=== PATIENT | male | born 1945 | race Two or more races ===

== ENCOUNTER 2024-11-14 13:50 | Inpatient (IN) | payer OTHER ==
[~2024-11-14] VITALS: Ht 180.3 cm; Wt 71.0 kg
--- NOTE | 2024-11-14 13:58 | ED.PDOC ---
GI ASSESSMENT HPI Comments This is a 79 year old male JARED presenting to the ED with chief complaint of abdominal pain. Patient reports that he has been experiencing abdominal cramping with associated nausea, vomiting, diarrhea, chills and fever since waking up this morning at 8am. Patient relays that his has also been recently sick, but is getting better now. Patient states he had lab work performed recently and his results show elevated liver enzymes. Patient denies any dizziness, chest pain, SOB, dysuria, hematuria, hematemesis, or melena. Time Seen by MD: 13:54 Reviewed Notes: Nurses Notes, Neurophysiologist Notes, Medications, Allergies Allergies: Coded Allergies: NO KNOWN ALLERGIES (Unverified , 11/14/24) Information Source: Patient, Emergency Med Personnel Mode of Arrival: EMS Timing: Hours Duration: Since onset Prehospital treatment: None Quality: Cramping Vomitus: Watery Stool: Loose Severity: Moderate Recent: None Recent Hx of: None Pain Location: Epigastric Modifying Factors: Nothing Associated sign and symptoms: Nausea, Vomiting, Diarrhea, Abdominal Pain Past Medical History PAST MEDICAL HISTORY: GERD Past Medical History (Other): Chronic back pain Surgical History: Cholecystectomy, Hernia Repair Surgical History (Other): Back surgery, Bilateral eye lens surgery Family History Family History: Reviewed,noncontributory to illness Social History Smoker: Non-Smoker Alcohol: Occasionally Drugs: Denies Drug Use Lives In: Home Constitutional: reports: chills, fever; denies: diaphoresis, fatigue, malaise, sweats, weakness, others EENTM: denies: blurred vision, double vision, ear bleeding, ear discharge, ear drainage, ear pain, ear ringing, eye pain, eye redness, hearing loss, mouth pa in, mouth swelling, nasal discharge, nose bleeding, nose congestion, nose pain, photophobia, tearing, throat pain, throat swelling, voice changes, others Respiratory: denies: cough, hemoptysis, orthopnea, SOB at rest, shortness of breath, SOB with excertion, stridor, wheezing, others Cardiovascular: denies: chest pain, dizzy spells, diaphoresis, Dyspnea on exertion, edema, irregular heart beat, left arm pain, lightheadedness, palpitations, PND, syncope, others Gastrointestinal: reports: abdominal pain, diarrhea, nausea, vomiting; denies: abdomen distended, blood streaked bowels, constipated, dysphagia, difficulty swallowing, hematemesis, melena, poor appetite, poor fluid intake, rectal bleeding, rectal pain, others Genitourinary: denies: burning, dysuria, flank pain, frequency, hematuria, incontinence, penile discharge, penile sore, pain, testicle pain, testicle swelling, urgency, others Neurological: denies: dizziness, fainting, headache, left sided numbness, left sided weakness, numbness, paresthesia, pre-existing deficit, right sided numbness, right sided weakness, seizure, speech problems, tingling, tremors, weakness, others Musculoskeletal: denies: back pain, gout, joint pain, joint swelling, muscle pain, muscle stiffness, neck pain, others Integumetry: denies: bruises, change in color, change in hair/nails, dryness, laceration, lesions, lumps, rash, wounds, others Allergic/Immunocompromised: denies: Difficulty Healing, Frequent Infections, Hives, Itching, others Hematologic/Lymphatic: denies: anemia, blood clots, easy bleeding, easy bruising, swollen glands, others Endocrine: denies: excessive hunger, excessive sweating, excessive thirst, excessive urination, flushing, intolerance to cold, intolerance to heat, unexplained weight gain, unexplained weight loss, others Psychiatric: denies: anxiety, bipolar disorder, depression, hopeless, panic disorder, schizophrenia, sleepless, suicidal, others All Other Systems: Reviewed and Negative Physical Exam General Appearance: Moderate Distress HEENT: Normal ENT Inspection, Pharynx Normal, TMs Normal Neck: Full Range of Motion, Non-Tender, Normal, Normal Inspection Respiratory: Chest Non-Tender, Lungs Clear, No Accessory Muscle Use, No Respiratory Distress, Normal Breath Sounds Cardiovascular: No Edema, No JVD, No Murmur, No Gallop, Normal Peripheral Pulses, Regular Rate/Rhythm Breast Exam: Deferred Gastrointestinal: No Organomegaly, Non Tender, No Pulsatile Mass, Normal Bowel Sounds, Soft Genitalia: Deferred Pelvic: Deferred Rectal: Deferred Extremities: No calf tenderness, Normal capillary refill, No pedal edema Musculoskeletal : Apperance: Normal Neurologic: Alert, head banquet waitress II-XII nml as Tested, No Motor Deficits, Normal Affect, Normal Mood, No Sensory Deficits Cerebellar Function: Normal Reflexes: Normal Skin: Dry, Normal Color, Warm Lymphatic: No Adenopathy Was a procedure done? Was a procedure done?: No GI differential Dx Differential Diagnosis: Gastritis/PUD, Gastroenteritis, UTI, Electrolyte Imbalance, Food Poisoning, Other (Viral syndrome) X-Ray, Labs, Meds, VS Vital Signs Date Time Temp Pulse Resp B/P (MAP) Pulse Ox O2 Delivery O2 Flow Rate FiO2 11/14/24 14:35 98.9 95 16 109/63 (78) 95 98.9 11/14/24 14:14 99.2 90 14 118/76 (90) 95 99.2 11/14/24 14:05 101 Lab Test 11/14/24 16:40 11/14/24 14:59 11/14/24 14:27 Range/Units SARS-CoV-2 Antigen (Rapid) Negative NEGATIVE Urine Color Yellow Yellow Urine Clarity Clear Clear Urine pH 5.0 5.0-9.0 Urine Specific [place] 1.017 1.001-1.035 Urine Protein Negative Negative Urine Ketones Negative Negative Urine Blood Trace H Negative /uL Urine Nitrite Negative Negative Urine Bilirubin Negative Negative Urine Urobilinogen Normal Negative mg/dL Urine Leukocyte Esterase Negative Negative /uL Urine RBC 1 0 - 3 /hpf Urine Microscopic WBC 1 0-3 /HPF Urine Squamous Epithelial Cells Few <5 /hpf Urine Bacteria None seen None Seen /hpf Urine Mucus Few None Seen Urine Glucose Normal Normal mg/dL White Blood Count 7.5 4.4-10.8 10^3/uL Red Blood Count 4.52 4.5-5.90 10^6/uL Hemoglobin 14.8 13.5-17.5 g/dL Hematocrit 43.0 41.0-53.0 % Mean Corpuscular Volume 95.3 80.0-100.0 fL Mean Corpuscular Hemoglobin 32.8 H 28.0-32.0 pg Mean Corpuscular Hemoglobin Concent 34.5 32.0-36.0 g/dL Red Cell Distribution Width 12.5 11.8-14.3 % Platelet Count 146 140-450 10^3/uL Mean Platelet Volume 6.9 6.9-10.8 fL Neutrophils (%) (Auto) 94.6 H 37.0-80.0 % Lymphocytes (%) (Auto) 2.8 L 10.0-50.0 % Monocytes (%) (Auto) 2.1 0.0-12.0 % Eosinophils (%) (Auto) 0.1 0.0-7.0 % Basophils (%) (Auto) 0.4 0.0-2.0 % Neutrophils # (Auto) 7.0 1.6-8.6 10 ^3/uL Lymphocytes # (Auto) 0.2 L 0.4-5.4 10 ^3/uL Monocytes # (Auto) 0.2 0-1.3 10 ^3/uL Eosinophils # (Auto) 0 0-0.8 10 ^3/uL Basophils # (Auto) 0 0-0.2 10 ^3/uL Nucleated Red Blood Cells 0.0 % Sodium Level 143 136-145 mmol/L Potassium Level 3.4 L 3.5-5.1 mmol/L Chloride Level 107 98-107 mmol/L Carbon Dioxide Level 26 20-31 mmol/L Anion Gap 10 5-15 Blood Urea Nitrogen 15 9-23 mg/dL Creatinine 1.31 H 0.700-1.30 mg/dL Glomerular Filtration Rate Calc 56 >90 mL/min BUN/Creatinine Ratio 11.5 10.0-20.0 Serum Glucose 108 H 74-106 mg/dL Lactic Acid Level 2.0 0.4-2.0 mmol/L Calcium Level 9.1 8.7-10.4 mg/dL Current Medications Medications (Trade) Dose Ordered Sig/Davina Route Start Time Stop Time Status Last Admin Sodium Chloride 500 ml @ 500 mls/hr Q1H ONCE IV 11/14/24 14:00 11/14/24 14:59 DC 11/14/24 15:07 Chest XR indicates: No acute cardiopulmonary disease. The patient's CBC and chemistry panel are within normal limits except for a creatinine of 1.31 The urine test is negative for infection At this time, the patient will be admitted The patient understands and management. Images Reviewed?: Images reviewed and evaluated by me Time of 1ST Reevaluation: 17:24 Reevaluation 1ST: Unchanged Patient Education/Counseling: Diagnosis, Treatment, Prognosis Family Education/Counseling: No Family Present Additional Information Reviewed patient's previous visit(s): None The following tests were ordered, and results were reviewed by me: CBC, BMP, UA, Lactic Acid, COVID-19, Blood Culture, EKG, Chest XR Additional information was gathered from interviewing the following independent historian: EMS I reviewed and agreed with the following test results read by other provider: Chest XR I discussed treatments and results with medical personnel and: PATIENT Comprehensive systems review obtained and negative except for what is stated in the HPI. SEPSIS Sepsis Screen Physician Orders Heplock Iv (11/14/24 13:54) Curing Press Maintainer (11/14/24 13:54) Blood Pressure (11/14/24 13:54) Pulse Oximetry (11/14/24 13:54) Chest Portable (11/14/24 14:02) Blood Culture (11/14/24 14:02) Admit (11/14/24 16:54) Allergies (11/14/24 16:54) Code Status (11/14/24 16:54) Sodium Chloride Lock (Saline Lock Ns) (11/14/24 22:00) Oxygen Per Hour (11/14/24 16:54) Hydrocodone-Acet 5/325mg Tab (Scott 5/32 (11/14/24 17:00) Ondansetron Hcl (Zofran) (11/14/24 17:00) Docusate Sodium Capsule (Colace Capsule) (11/14/24 17:00) Fall Risk Precautions In Place QSHIFT (11/14/24 16:54) Complete Blood Count (11/15/24 04:00) Comprehensive Metabolic Panel (11/15/24 04:00) Cardiac Diet-2gna,Lofat,Lochol (11/14/24 Dinner) Condition: Serious (11/14/24 16:54) Acetaminophen Tablet (Tylenol Tablet) (11/14/24 17:00) Maintain Bed Rest (11/14/24 16:54) Sequential Compression Device (11/14/24 ) Nitroglycerin Sublingual (Ntrostat Subli (11/14/24 17:00) Morphine Sulfate Injection (11/14/24 17:00) Stat Ekg For Chest Pain (11/14/24 16:54) Notify Md Of Changes From Base (11/14/24 16:54) Rn Document Improvement For 24 Hours (11/14/24 16:54) Emergency Dysrhythmia Protocol (11/14/24 16:54) Rhythm Strips Once Every Shift (11/14/24 16:54) Oxygen By Nasal Cannula (11/14/24 16:54) Vital Signs Date Time Temp Pulse Resp B/P (MAP) Pulse Ox O2 Delivery O2 Flow Rate FiO2 11/14/24 14:35 98.9 95 16 109/63 (78) 95 98.9 11/14/24 14:14 99.2 90 14 118/76 (90) 95 99.2 11/14/24 14:05 101 Laboratory Tests Test 11/14/24 14:27 Lactic Acid Level 2.0 mmol/L (0.4-2.0) White Blood Count 7.5 10^3/uL (4.4-10.8) Medications Medications Dose Ordered Sig/Davina Route Start Time Stop Time Status Last Admin Dose Admin Sodium Chloride 500 ml @ 500 mls/hr Q1H ONCE IV 11/14/24 14:00 11/14/24 14:59 DC 11/14/24 15:07 Departure 1 Departure Time of Disposition: 17:24 Impression: Primary Impression: Fever Qualified Codes: R50.9 - Fever, unspecified Additional Impressions: Autonomic dysfunction Generalized weakness Disposition: ADMITTED INPATIENT Admit to: Tele Condition: Fair Critical Care Note Critical Care Time?: Yes (45 min-critical care time only) Stability Stability form required: Yes Unstable for transfer: Telemetry monitoring (Telemetry monitoring required), ED Physician Assesment (Clinical assesment) Heart Score Heart Score: Heart Score Response (Comments) Value History N/A 0 EKG N/A 0 Age N/A 0 Risk Factors N/A 0 Troponin N/A 0 Total 0 I personally scribed for HERIBERTO JOHNSON MD ([email or web address]) on 11/14/24 at 13:58. Electronically submitted by Panda Patel ([email or web address]). I personally scribed for HERIBERTO JOHNSON MD ([email or web address]) on 11/14/24 at 14:53. Electronically submitted by Panda Patel ([email or web address]). I personally scribed for HERIBERTO JOHNSON MD ([email or web address]) on 11/14/24 at 14:59. Electronically submitted by Panda Patel ([email or web address]). HERIBERTO JOHNSON MD Nov 14, 2024 13:58
--- NOTE | 2024-11-14 14:06 | ECG ---
[facility] Test Date: 2024-11-14 Test Time: 14:05:23 Pat Name: LIANNA TREVINO Department: ED Room: [address] [place] [address] Gender: M Academic Counselor: ALMA : 1945 Requested By: HERIBERTO JOHNSON Order Number: [id number] Reading MD: Daniel Lopez Measurements Intervals [place] Rate: 101 P: 83 KS: 149 QRS: 91 QRSD: 98 T: -79 QT: 323 QTc: 419 Interpretive Statements Sinus tachycardia Right axis deviation Abnormal T, consider ischemia, diffuse leads Baseline wander in lead(s) aVR Electronically Signed On 11-14-2024 22:59:03 PDT by Daniel Lopez Please click the below link to view image of tracing.
--- NOTE | 2024-11-14 14:44 | DVH ---
EXAM: XY CHEST PORTABLE Indication: sob Technique: Single frontal view of the chest was obtained Comparison: None FINDINGS: Lines and Tubes: None Lungs: No focal consolidation. Pleura: No effusion. No pneumothorax. Cardiomediastinal contours: Unremarkable. Atherosclerotic vascular calcifications of the thoracic ao rta are noted. Bones: No acute osseous abnormality. IMPRESSION: No acute cardiopulmonary disease.
[2024-11-14 14:54] LABS: Chloride 107 mmol/L (98-107); Sodium 143 mmol/L (136-145)
[2024-11-14 14:55] LABS: Anion Gap 10 (5-15); Calcium 9.1 mg/dL (8.7-10.4); Carbon Dioxide 26 mmol/L (20-31)
[2024-11-14 15:00] LABS: Urine Bacteria None Seen /hpf (None Seen)
[2024-11-14 15:00] LABS: BUN/Creatinine Ratio 11.5 (10.0-20.0); Blood Urea Nitrogen 15 mg/dL (9-23); Glucose 108 mg/dL (74-106); Potassium 3.4 mmol/L (3.5-5.1)
[2024-11-14 15:02] LABS: Basophils # (auto) 0 10 ^3/uL (0-0.2); Basophils % (auto) 0.4 % (0.0-2.0); Eosinophils # (auto) 0 10 ^3/uL (0-0.8); Eosinophils % (auto) 0.1 % (0.0-7.0); Hemoglobin 14.8 g/dL (13.5-17.5); Lymphocytes # (auto) 0.2 10 ^3/uL (0.4-5.4); Lymphocytes % (auto) 2.8 % (10.0-50.0); Mean Corpuscular Hemoglobin 32.8 pg (28.0-32.0); Mean Corpuscular Hgb Conc. 34.5 g/dL (32.0-36.0); Mean Corpuscular Volume 95.3 fL (80.0-100.0); Monocytes # (auto) 0.2 10 ^3/uL (0-1.3); Monocytes % (auto) 2.1 % (0.0-12.0); Neutrophils % (auto) 94.6 % (37.0-80.0); Platelet Count (auto) 146 10^3/uL (140-450); Red Blood Cells 4.52 10^6/uL (4.5-5.90); Red Cell Distribution Width 12.5 % (11.8-14.3); White Blood Cell 7.5 10^3/uL (4.4-10.8)
[2024-11-14] MEDS: SODIUM CHLORIDE 0.9% 500 ML IV ONE (15:07)
[2024-11-14] MEDS: ACETAMINOPHEN 325 MG TAB PO ONE (15:07)
[2024-11-14 15:11] LABS: Urine Blood TRACE /uL (Negative); Urine Clarity Clear (Clear); Urine Color Yellow (Yellow); Urine Mucus FEW (None Seen); Urine Protein, UAD Negative (Negative); Urine Specific Gravity 1.017 (1.001-1.035); Urine Squamous Epithelial Cell FEW /hpf (<5); Urine Urobilinogen Normal (Negative); Urine WBC 1 /HPF (0-3)
--- NOTE | 2024-11-14 16:59 | DVHHP2 ---
History of Present Illness Reason for Visit: Generalized weakness History of Present Illness The patient is a 79-year-old male with past medical history of GERD and chronic back pain who presented to [facility] ED with complaint of abdominal pain. Patient reports that he has been experiencing abdominal cramping as sociated with nausea, vomiting, diarrhea, fever, and chills. Patient states that his has also been recently sick, but is getting better now. Patient was seen and evaluated in the ED, laboratory data shows WBC 7.5, platelets 146, sodium 143, potassium 3.4, BUN 15, creatinine 1.31, glucose 108, calcium 9.1, lactic acid 2.0, blood pressure 109/63, heart rate 95, temperature 98.9 F, O2 saturation 95% on room air. Chest x-ray show no acute cardiopulmonary disease. Please see medication orders section in the computer. On my assessment, patient denies chest pain, no headache, no dizziness, no shortness of breath, no abdominal pain, nausea or vomiting at this moment, no fever, no chills. Patient was admitted for further evaluation and medical management. Past Medical History GERD, Chronic back pain Past Surgical History Cholecystectomy, Hernia Repair, Back surgery, Bilateral eye lens surgery Family History Reviewed, noncontributory to the management of this case. Past Social History The patient lives at home, denies smoking, alcohol or illicit drugs abuse. Review of Systems Constitutional: Yes: Weakness; No: Fever, Chills, Sweats, Malaise, Other Eyes: No: Pain, Vision change, Conjunctivae inflammation, Eyelid inflammation, Other, Redness ENT: No: Ear pain, Ear discharge, Nose pain, Nose discharge, Nose congestion, Mouth pain, Mouth swelling, Throat pain, Throat swelling, Other Respiratory: No: Cough, Dry, Shortness of breath, SOB with excertion, Wheezing, Hemoptysis, Pleuritic Pain, Sputum, Wheezing, Other Cardiovascular: No: Chest Pain, Palpitations, Orthopnea, Paroxysmal Noc. Dyspnea, Edema, Lt Headedness, Other Gastrointestinal: Nausea, Vomiting, Abdominal Pain; No: Diarrhea, Constipation, Melena, Hematochezia, Other Genitourinary: No Dysuria, No Frequency, No Incontinence, No Hematuria, No Retention, No Other Musculoskeletal: No: other, neck pain, shoulder pain, arm pain, back pain, hand pain, leg pain, foot pain Skin: No: Rash, Lesions, Jaundice, Bruising, Other Neurological: No: Weakness, Numbness, Incoordination, Change in speech, Confusion, Seizures, Other Allergies: Coded Allergies: NO KNOWN ALLERGIES (Unverified , 11/14/24) Exam Vital Signs Vital Signs Date Time Temp Pulse Resp B/P (MAP) Pulse Ox O2 Delivery O2 Flow Rate FiO2 11/14/24 14:35 98.9 95 16 109/63 (78) 95 98.9 General Appearance: Alert, Oriented X3, Cooperative, No acute distress HEENT: Atraumatic, PERRLA, EOMI, Mucous membr. moist/pink Respiratory: Clear to auscultation, Normal air movement Cardiovascular: Regular rate, Normal S1, Normal S2, No murmurs Abdominal: Normal bowel sounds, Soft, No tenderness, No hepatospenomegaly, No masses Extremities: No clubbing, No cyanosis, No edema, Normal pulses, No tenderness/swelling Skin: No rashes, No breakdown, No significant lesion Neuro: Normal speech, Normal tone, Sensation intact, Cranial nerves 3-12 NL, Reflexes 2+, Other (Generalized weakness) Psych/Mental Status: Mental status NL, Mood NL Labs/Xrays Labs Test 11/14/24 16:40 11/14/24 14:59 11/14/24 14:27 Range/Units Urine Color Yellow Yellow Urine Clarity Clear Clear Urine pH 5.0 5.0-9.0 Urine Specific [place] 1.017 1.001-1.035 Urine Protein Negative Negative Urine Ketones Negative Negative Urine Blood Trace H Negative /uL Urine Nitrite Negative Negative Urine Bilirubin Negative Negative Urine Urobilinogen Normal Negative mg/dL Urine Leukocyte Esterase Negative Negative /uL Urine RBC 1 0 - 3 /hpf Urine Microscopic WBC 1 0-3 /HPF Urine Squamous Epithelial Cells Few <5 /hpf Urine Bacteria None seen None Seen /hpf Urine Mucus Few None Seen Urine Glucose Normal Normal mg/dL White Blood Count 7.5 4.4-10.8 10^3/uL Red Blood Count 4.52 4.5-5.90 10^6/uL Hemoglobin 14.8 13.5-17.5 g/dL Hematocrit 43.0 41.0-53.0 % Mean Corpuscular Volume 95.3 80.0-100.0 fL Mean Corpuscular Hemoglobin 32.8 H 28.0-32.0 pg Mean Corpuscular Hemoglobin Concent 34.5 32.0-36.0 g/dL Red Cell Distribution Width 12.5 11.8-14.3 % Platelet Count 146 140-450 10^3/uL Mean Platelet Volume 6.9 6.9-10.8 fL Neutrophils (%) (Auto) 94.6 H 37.0-80.0 % Lymphocytes (%) (Auto) 2.8 L 10.0-50.0 % Monocytes (%) (Auto) 2.1 0.0-12.0 % Eosinophils (%) (Auto) 0.1 0.0-7.0 % Basophils (%) (Auto) 0.4 0.0-2.0 % Neutrophils # (Auto) 7.0 1.6-8.6 10 ^3/uL Lymphocytes # (Auto) 0.2 L 0.4-5.4 10 ^3/uL Monocytes # (Auto) 0.2 0-1.3 10 ^3/uL Eosinophils # (Auto) 0 0-0.8 10 ^3/uL Basophils # (Auto) 0 0-0.2 10 ^3/uL Nucleated Red Blood Cells 0.0 % Sodium Level 143 136-145 mmol/L Potassium Level 3.4 L 3.5-5.1 mmol/L Chloride Level 107 98-107 mmol/L Carbon Dioxide Level 26 20-31 mmol/L Anion Gap 10 5-15 Blood Urea Nitrogen 15 9-23 mg/dL Creatinine 1.31 H 0.700-1.30 mg/dL Glomerular Filtration Rate Calc 56 >90 mL/min BUN/Creatinine Ratio 11.5 10.0-20.0 Serum Glucose 108 H 74-106 mg/dL Lactic Acid Level 2.0 0.4-2.0 mmol/L Calcium Level 9.1 8.7-10.4 mg/dL PATIENT: Santosh Muhammad ACCT: [id number] UNIT: [id number] : 1945 LOC: ER ROOM / BED: / AGE / SEX: 79 / M ADM STATUS: REG ER SERVICE [id number] ORDERING PHYSICIAN: HERIBERTO JOHNSON MD PROCEDURE(s): CXRP - CHEST PORTABLE REASON: sob ORDER NUMBER(s): [id number], ACCESSION NUMBER(s): [id number] EXAM: XY CHEST PORTABLE Indication: sob Technique: Single frontal view of the chest was obtained Comparison: None FINDINGS: Lines and Tubes: None Lungs: No focal consolidation. Pleura: No effusion. No pneumothorax. Cardiomediastinal contours: Unremarkable. Atherosclerotic vascular calcifications of the thoracic aorta are noted. Bones: No acute osseous abnormality. IMPRESSION: No acute cardiopulmonary disease. Assessment/Plan Assessment/Plan Fever, unspecified Hypokalemia Acute renal injury Acute abdominal pain Intractable nausea and vomiting Generalized weakness Plan 1. Admit to telemetry unit 2. Breathing treatment 3. Pain control management 4. Management of fluids and electrolytes 5. Consultation for hospitalist 6. Diagnostic tests chest x-ray 7. DVT prophylaxis-on SCDs 8. Repeat labs CBC, CMP in a.m. 9. Continue with current medical management 10. Treatment plan discussed with patient and RN. Patient verbalized understanding. Plan discussed with: Patient, Other (RN) Problem List: (1) Fever, unspecified (2) Hypokalemia (3) Acute renal injury (4) Acute abdominal pain (5) Intractable nausea and vomiting (6) Generalized weakness Date of Service: Nov 14, 2024 Billing Provider: BRUNO FONTENOT DNP Common Visit Codes: [id number] INP/OBS CARE (HIGH) BRUNO FONTENOT DNP Nov 14, 2024 16:59
[2024-11-14] MEDS ORDERED: ACETAMINOPHEN 325 MG TAB PO PRN (17:00)
[2024-11-14] MEDS ORDERED: HYDROcodone-ACET 5/325MG TAB PO PRN (17:00)
[2024-11-14] MEDS ORDERED: ONDANSETRON HCL 4 MG/2 ML VIAL IV PRN (17:00)
[2024-11-14] MEDS ORDERED: DOCUSATE SOD 100 MG CAP PO PRN (17:00)
[2024-11-14] MEDS ORDERED: NITROGLYCERIN 0.4 MG SL TAB SL PRN (17:00)
[2024-11-14] MEDS ORDERED: MORPHINE SULFATE INJ 2 MG/ml SYRG IV PRN (17:00)
[2024-11-14 17:22] LABS: COVID19 ANTIGEN SOFIA FIA NEGATIVE (NEGATIVE)
[2024-11-14] MEDS: POTASSIUM CHL 20 Meq TABLET PO ONE (19:28)
[2024-11-14 19:30] VITALS: PULSE 76; RESP 13; O2SAT 97
[2024-11-14] MEDS ORDERED: PERCOT PO (20:14)
[2024-11-14] MEDS ORDERED: TAMS-35 PO (20:17)
[2024-11-14] MEDS ORDERED: ALPR0.5T PO (20:17)
[2024-11-14] MEDS ORDERED: FINA5TAB4 PO (20:17)
[2024-11-14] MEDS: SODIUM CHLOR 0.9% PF (SALINE LOCK) 10ML VIAL/SYR IV SCH (22:03)
[2024-11-14] MEDS: ALPRAZolam 0.5 MG TAB PO ONE (22:35)
[2024-11-15] VITALS (7 sets, daily range): BP systolic 102–127; BP diastolic 52–66; PULSE 61–83; RESP 14–22; TEMP 36.7; O2SAT 93–98
[2024-11-15 06:31] LABS: Basophils # (auto) 0 10 ^3/uL (0-0.2); Basophils % (auto) 0.4 % (0.0-2.0); Eosinophils # (auto) 0 10 ^3/uL (0-0.8); Eosinophils % (auto) 0.3 % (0.0-7.0); Hematocrit 38.3 % (41.0-53.0); Hemoglobin 13.3 g/dL (13.5-17.5); Lymphocytes # (auto) 1.1 10 ^3/uL (0.4-5.4); Lymphocytes % (auto) 15.1 % (10.0-50.0); Mean Corpuscular Hgb Conc. 34.7 g/dL (32.0-36.0); Mean Corpuscular Volume 95.2 fL (80.0-100.0); Monocytes # (auto) 0.5 10 ^3/uL (0-1.3); Neutrophils # (auto) 5.6 10 ^3/uL (1.6-8.6); Neutrophils % (auto) 77.2 % (37.0-80.0); Platelet Count (auto) 124 10^3/uL (140-450); Red Blood Cells 4.02 10^6/uL (4.5-5.90); Red Cell Distribution Width 12.6 % (11.8-14.3); White Blood Cell 7.2 10^3/uL (4.4-10.8)
[2024-11-15 06:58] LABS: Anion Gap 9 (5-15); BUN/Creatinine Ratio 10.4 (10.0-20.0); Blood Urea Nitrogen 13 mg/dL (9-23); Calcium 9.1 mg/dL (8.7-10.4); Carbon Dioxide 27 mmol/L (20-31); Chloride 106 mmol/L (98-107); Potassium 4.6 mmol/L (3.5-5.1); Sodium 142 mmol/L (136-145); Total Protein 6.3 g/dL (5.7-8.2)
[2024-11-15 07:01] LABS: Alanine Aminotransferase 192 U/L (7-40); Alkaline Phosphatase 307 U/L (46-116); Aspartate Aminotransferase 182 U/L (<34); Glucose 112 mg/dL (74-106)
[2024-11-15] MEDS ORDERED: VANCOMYCIN PER PHARMACY 0 MG IV SCH (08:45)
[2024-11-15] MEDS: VANCOMYCIN 1.25GM/250ML 250 ML IV ONE (12:28)
--- NOTE | 2024-11-15 12:55 | DVHPN2 ---
Reviewed: Care Plan, H&P, Labs, Medications, Previous Orders Changes from previous H/P or p: No Changes General: Per HPI Eyes: No Pain, No Vision change, No Conjunctivae inflammation, No Eyelid inflammation, No Other, No Redness ENT: No Ear pain, No Ear discharge, No Nose pain, No Nose discharge, No Nose congestion, No Mouth pain, No Mouth swelling, No Throat pain, No Throat swelling, No Other Cardiovascular: No Chest Pain, No Palpitations, No Orthopnea, No Paroxysmal Noc. Dyspnea, No Edema, No Lt Headedness, No Other Respiratory: No Cough, No Dry, No Shortness of breath, No SOB with excertion, No Wheezing, No Hemoptysis, No Pleuritic Pain, No Sputum, No Other Gastrointestinal: Nausea, Vomiting, Abdominal Pain; No Diarrhea, No Constipation, No Melena, No Hematochezia, No Other Genitourinary: No Dysuria, No Frequency, No Incontinence, No Hematuria, No Retention, No Other Musculoskeletal: No other, No neck pain, No shoulder pain, No arm pain, No back pain, No hand pain, No leg pain, No foot pain Skin: No Rash, No Lesions, No Jaundice, No Bruising, No Other Objective Vitals Vital Signs Date Time Temp Pulse Resp B/P (MAP) Pulse Ox O2 Delivery O2 Flow Rate FiO2 11/15/24 09:30 98.0 61 18 104/55 (71) 93 98.0 11/15/24 08:00 Room Air* 0 21 Intake/Output Intake and Output 11/15/24 07:00 Intake Total 100 ml Balance 100 ml Intake Oral 100 ml # Voids 1 General Appearance: Alert, Oriented X3, Cooperative Cardiovascular: Regular rate Abdomen: Normal bowel sounds Neuro: Normal gait, Normal speech Medications Current Medications Medications Dose Ordered Sig/Davian Route Start Time Stop Time Status Last Admin Dose Admin Sodium Chloride 10 ml Q8HR IV 11/14/24 22:00 11/15/24 05:16 10 ML Acetaminophen/ Hydrocodone Bitart 1 tab Q4HP PRN PO 11/14/24 17:00 Ondansetron HCl 4 mg Q4HP PRN IV 11/14/24 17:00 Docusate Sodium 100 mg BIDPRN PRN PO 11/14/24 17:00 Acetaminophen 650 mg Q6HP PRN PO 11/14/24 17:00 Nitroglycerin 0.4 mg Q5MINP PRN SL 11/14/24 17:00 Morphine Sulfate 2 mg Q30M PRN IV 11/14/24 17:00 Vancomycin HCl 0 ml @ 0 mls/hr UD IV 11/15/24 08:45 Laboratory Results Laboratory Tests 11/15/24 05:48 Chemistry Test 11/14/24 14:27 11/15/24 05:48 Calcium Level 9.1 mg/dL (8.7-10.4) 9.1 mg/dL (8.7-10.4) Albumin 4.0 g/dL (3.2-4.8) Total Protein 6.3 g/dL (5.7-8.2) LFT Test 11/15/24 05:48 Alanine Aminotransferase (ALT) 192 U/L (7-40) H Alkaline Phosphatase 307 U/L (46-116) H Aspartate Amino Transferase (AST) 182 U/L (<34) H Total Bilirubin 2.0 mg/dL (0.2-1.0) H Urinalysis Test 11/14/24 14:59 Urine Color Yellow (Yellow) Urine Clarity Clear (Clear) Urine pH 5.0 (5.0-9.0) Urine Specific [place] 1.017 (1.001-1.035) Urine Protein Negative (Negative) Urine Ketones Negative (Negative) Urine Blood Trace /uL (Negative) H Urine Nitrite Negative (Negative) Urine Bilirubin Negative (Negative) Urine Urobilinogen Normal mg/dL (Negative) Urine Leukocyte Esterase Negative /uL (Negative) Urine RBC 1 /hpf (0 - 3) Urine Microscopic WBC 1 /HPF (0-3) Urine Squamous Epithelial Cells Few /hpf (<5) Urine Bacteria None seen /hpf (None Seen) Urine Mucus Few (None Seen) Urine Glucose Normal mg/dL (Normal) Microbiology Microbiology Date/Time Source Procedure Growth Status 11/14/24 14:27 Blood Blood Culture - Preliminary Resulted Labs and/or images reviewed: Labs reviewed by me, Image(s) reviewed by me Assessment/Plan Assessment/Plan The patient is a 79-year-old male with past medical history of GERD and chronic back pain who presented to [facility] ED with complaint of abdominal pain. Patient reports that he has been experiencing abdominal cramping associated with nausea, vomiting, diarrhea, fever, and chills. Patient states that his has also been recently sick, but is getting better now. Patient was seen and evaluated in the ED, laboratory data shows WBC 7.5, platelets 146, sodium 143, potassium 3.4, BUN 15, creatinine 1.31, glucose 108, calcium 9.1, lactic acid 2.0, blood pressure 109/63, heart rate 95, temperature 98.9 F, O2 saturation 95% on room air. Chest x-ray show no acute cardiopulmonary disease. Please see medication orders section in the computer. On my assessment, patient denies chest pain, no headache, no dizziness, no shortness of breath, no abdominal pain, nausea or vomiting at this moment, no fever, no chills. Patient was admitted for further evaluation and medical management. Fever, unspecified Hypokalemia Acute renal injury Acute abdominal pain Intractable nausea and vomiting Generalized weakness Plan discussed with: Patient Date of Service: Nov 15, 2024 Billing Provider: SHARRON YOON DO Common Visit Codes: [id number] INP/OBS CARE(HIGH) SHARRON YOON DO Nov 15, 2024 12:55
[2024-11-15] MEDS ORDERED: METR-344 PO (14:22)
--- NOTE | 2024-11-15 14:23 | DVHDS2 ---
Discharge Summary Date of Admission Nov 14, 2024 at 16:54 Date of Discharge: Nov 15, 2024 Labs/Diagnostic Data: Laboratory Results Test 11/15/24 05:48 11/14/24 16:40 11/14/24 14:59 11/14/24 14:27 White Blood Count 7.2 10^3/uL (4.4-10.8) Red Blood Count 4.02 10^6/uL (4.5-5.90) Hemoglobin 13.3 g/dL (13.5-17.5) Hematocrit 38.3 % (41.0-53.0) Mean Corpuscular Volume 95.2 fL (80.0-100.0) Mean Corpuscular Hemoglobin 33.0 pg (28.0-32.0) Mean Corpuscular Hemoglobin Concent 34.7 g/dL (32.0-36.0) Red Cell Distribution Width 12.6 % (11.8-14.3) Platelet Count 124 10^3/uL (140-450) Mean Platelet Volume 6.9 fL (6.9-10.8) Neutrophils (%) (Auto) 77.2 % (37.0-80.0) Lymphocytes (%) (Auto) 15.1 % (10.0-50.0) Monocytes (%) (Auto) 7.0 % (0.0-12.0) Eosinophils (%) (Auto) 0.3 % (0.0-7.0) Basophils (%) (Auto) 0.4 % (0.0-2.0) Neutrophils # (Auto) 5.6 10 ^3/uL (1.6-8.6) Lymphocytes # (Auto) 1.1 10 ^3/uL (0.4-5.4) Monocytes # (Auto) 0.5 10 ^3/uL (0-1.3) Eosinophils # (Auto) 0 10 ^3/uL (0-0.8) Basophils # (Auto) 0 10 ^3/uL (0-0.2) Nucleated Red Blood Cells 0.0 % Sodium Level 142 mmol/L (136-145) Potassium Level 4.6 mmol/L (3.5-5.1) Chloride Level 106 mmol/L (98-107) Carbon Dioxide Level 27 mmol/L (20-31) Anion Gap 9 (5-15) Blood Urea Nitrogen 13 mg/dL (9-23) Creatinine 1.25 mg/dL (0.700-1.30) Glomerular Filtration Rate Calc 59 mL/min (>90) BUN/Creatinine Ratio 10.4 (10.0-20.0) Serum Glucose 112 mg/dL (74-106) Calcium Level 9.1 mg/dL (8.7-10.4) Total Bilirubin 2.0 mg/dL (0.2-1.0) Aspartate Amino Transferase (AST) 182 U/L (<34) Alanine Aminotransferase (ALT) 192 U/L (7-40) Alkaline Phosphatase 307 U/L (46-116) Total Protein 6.3 g/dL (5.7-8.2) Albumin 4.0 g/dL (3.2-4.8) SARS-CoV-2 Antigen (Rapid) Negative (NEGATIVE) Urine Color Yellow (Yellow) Urine Clarity Clear (Clear) Urine pH 5.0 (5.0-9.0) Urine Specific [place] 1.017 (1.001-1.035) Urine Protein Negative (Negative) Urine Ketones Negative (Negative) Urine Blood Trace /uL (Negative) Urine Nitrite Negative (Negative) Urine Bilirubin Negative (Negative) Urine Urobilinogen Normal mg/dL (Negative) Urine Leukocyte Esterase Negative /uL (Negative) Urine RBC 1 /hpf (0 - 3) Urine Microscopic WBC 1 /HPF (0-3) Urine Squamous Epithelial Cells Few /hpf (<5) Urine Bacteria None seen /hpf (None Seen) Urine Mucus Few (None Seen) Urine Glucose Normal mg/dL (Normal) Lactic Acid Level 2.0 mmol/L (0.4-2.0) Other Laboratory Tests 11/15/24 05:48 Brief Hx & Hospital Course: The patient is a 79-year-old male with past medical history of GERD and chronic back pain who presented to [facility] ED with complaint of abdominal pain. Patient reports that he has been experiencing abdominal cramping associated with nausea, vomiting, diarrhea, fever, and chills. Patient states that his has also been recently sick, but is getting better now. Patient was seen and evaluated in the ED, laboratory data shows WBC 7.5, platelets 146, sodium 143, potassium 3.4, BUN 15, creatinine 1.31, glucose 108, calcium 9.1, lactic acid 2.0, blood pressure 109/63, heart rate 95, temperature 98.9 F, O2 saturation 95% on room air. Chest x-ray show no acute cardiopulmonary disease. Please see medication orders section in the computer. On my assessment, patient denies chest pain, no headache, no dizziness, no shortness of breath, no abdominal pain, nausea or vomiting at this moment, no fever, no chills. Patient was admitted for further evaluation and medical management. Fever, unspecified Hypokalemia Acute renal injury Acute abdominal pain Intractable nausea and vomiting Generalized weakness discharged to home Condition at Discharge: Fair Final Diagnosis/Problems List see above Discharge Disposition: Home Discharge Instruct/Medications Diet: Cardiac 2g Na,low cholest Activity: No Restrictions, As Tolerated Discharge Statement: "Patient was advised to return to the ER or call 911 if any headaches, dizziness, shortness of breath, chest pain, abdominal pain, bleeding, fevers, or worsening of medical condition. Patient was counseled about treatment plan, medications, possible side effects, patientverbalized understanding. All questions were answered to the best of my ability. This discharge took greater then 30 minutes in planning, reviewing documentation, counseling the patient, and discussing with other team members." ASSESSMENT ASSESSMENT Assessment Date of Service: Nov 15, 2024 Billing Provider: SHARRON YOON DO Common Visit Codes: 29755-BDP/OBS DISCH DAY >30min SHARRON YOON DO Nov 15, 2024 14:23
== END 2024-11-15 17:00 | disposition home or self-care (01) | DRG 392 ==
LOC: EDBD 13:50 → ER 13:50 → OVERFLOW 16:54 → TELE-CENTR 23:00
PROVIDERS: ADMIT Internal Medicine; ATTEND Internal Medicine
DX: A09 Infectious gastroenteritis and colitis, unspecified (principal); N17.9 Acute kidney failure, unspecified; E87.6 Hypokalemia; Z20.822 Contact with and (suspected) exposure to COVID-19; G89.29 Other chronic pain; K21.9 Gastro-esophageal reflux disease without esophagitis; Z90.49 Acquired absence of other specified parts of digestive tract; Z79.899 Other long term (current) drug therapy
CPT/HCPCS: 36415; 71045; 80048; 80053; 81001; 83605; 85025; 87040; 87077; 87081; 87186; 87426; 93005; 96360; 99291; G0378